=== PATIENT | female | born 1965 | race Caucasian/White ===

== ENCOUNTER 2017-03-31 02:35 | Emergency (ER) ==
[2017-03-31 02:48] VITALS: TEMP 97.6; BMI 29.6
[2017-03-31] MEDS ORDERED: CATAPRES PO STA (03:15)
[2017-03-31] MEDS ORDERED: ZOFRAN 4 MG/2 ML IM STA (03:16)
[2017-03-31] MEDS ORDERED: MORPHINE 2 MG/ML SYRINGE IM STA (03:16)
[2017-03-31] MEDS ORDERED: CATAPRES ONE (03:18)
--- NOTE | 2017-03-31 03:19 | ED.PDOC ---
General ED Provider: Dr. EMMA BURCH Chief Complaint: Hypertension Stated Complaint: Been having problem with BP, today it been more than 200, and having headache. no blurry vision, Time Seen by Physician: 03:17 Mode of Arrival: Walk-In Information Source: Patient Primary Care Provider: MARLENE HERNÁNDEZ Nursing and Triage Documentation Reviewed and Agree: Yes Cardiovascular Complaint Exam - Hypertension Complaint/Exam Symptoms Are: Still present Timing: Intermittent Aggravating: Reports: None Alleviating: Reports: None Associated Signs and Symptoms: Reports: Recent stress, Headache. Denies: Chest pain, Vision changes, Anxiety, Numbness, Tingling, Weakness, Dizziness, Short of air, Swelling Related Surgical History: Reports: None Cardiac Risk Factors: Reports: None Recent Change in Medications: No A/V Nicking: No Papilledema Present: No JVD Present: No Carotid Bruit Present: No Femoral Pulses Bounding: No Differential Diagnoses: Hypertension Quality Indicator For Non-Traumatic Chest Pain/Syncope: EKG Performed Review of Systems - Review Of Systems Constitutional: Reports: Malaise, Weakness Eyes: Reports: No symptoms Ears, Nose, Mouth, Throat: Reports: No symptoms Respiratory: Reports: No symptoms Cardiac: Reports: No symptoms GI: Reports: No symptoms : Reports: No symptoms Musculoskeletal: Reports: No symptoms Skin: Reports: No symptoms Neurological: Reports: Headache Endocrine: Reports: No symptoms Hematologic/Lymphatic: Reports: No symptoms All Other Systems: Reviewed and Negative Past Medical History - Past Medical History Previously Healthy: Yes Endocrine: Reports: None Cardiovascular: Reports: None Respiratory: Reports: None Hematological: Reports: None Gastrointestinal: Reports: None Genitourinary: Reports: None Neuro/Psych: Reports: None Musculoskeletal: Reports: None Cancer: Reports: None Last Menstrual Period: LAST WEEK - Surgical History General Surgical History: Reports: None - Family History Family History: Reports: None - Social History Smoking Status: Current every day smoker, Heavy tobacco smoker Smoking Cessation Counseling Time: > 3 min - 10 min Hx Substance Use: No Alcohol Screening: None - Immunizations Tetanus Shot up to Date: No Physical Exam - Physical Exam Appearance: Well-appearing, No pain distress, Well-nourished Eyes: SHALONDA, EOMI, Conjunctiva clear ENT: Ears normal, Nose normal, Oropharynx normal Respiratory: Airway patent, Breath sounds clear, Breath sounds equal, Respirations nonlabored Cardiovascular: RRR, Pulses normal, No rub, No murmur GI/: Soft, Nontender, No masses, Bowel sounds normal, No Organomegaly Musculoskeletal: Normal strength, ROM intact, No edema, No calf tenderness Skin: Warm, Dry, Normal color Neurological: Sensation intact, Motor intact, Reflexes intact, Cranial nerves intact, Alert, Oriented Psychiatric: Affect appropriate, Mood appropriate Critical Care Note - Critical Care Note Total Time (mins): 0 Course - Course Orders, Labs, Meds: Orders Category Date Time Status EKG-(ED ONLY) Stat CARDIO 03/31/17 03:15 Ordered CBC W/ AUTO DIFF Stat LAB 03/31/17 03:15 Ordered COMPREHENSIVE METABOLIC PANEL Stat LAB 03/31/17 03:15 Ordered CREATINE KINASE Stat LAB 03/31/17 03:15 Ordered TROPONIN I Stat LAB 03/31/17 03:15 Ordered Clonidine HCl [Catapres] MEDS 03/31/17 03:15 Stat 0.2 mg PO ONCE STA Morphine Sulfate [Morphine 2 mg/ml Syringe] MEDS 03/31/17 03:16 Stat 2 mg IM ONCE STA Ondansetron HCl/Pf [Zofran 4 mg/2 ml] MEDS 03/31/17 03:16 Stat 4 mg IM ONCE STA CT HEAD W/O CONTRAST Stat RADS 03/31/17 03:15 Ordered Medications Generic Name Dose Route Start Last Admin Trade Name Tomas PRN Reason Stop Dose Admin Clonidine 0.2 mg 03/31/17 03:15 Catapres PO 03/31/17 03:16 ONCE STA Morphine Sulfate 2 mg 03/31/17 03:16 Morphine 2 Mg/Ml Syringe IM 03/31/17 03:17 ONCE STA Ondansetron HCl 4 mg 03/31/17 03:16 Zofran 4 Mg/2 Ml IM 03/31/17 03:17 ONCE STA Vital Signs: Temp Pulse Resp BP Pulse Ox 03/31/17 02:37 97.6 F 62 18 197/83 H 96 SUSANA Risk Score SUSANA Risk Score: Risk Score Odds of by 30D 0 0.1 (0.1-0.2) 1 0.3 (0.2-0.3) 2 0.4 (0.3-0.5) 3 0.7 (0.6-0.9) 4 1.2 (1.0-1.5) 5 2.2 (1.9-2.6) 6 3.0 (2.5-3.6) 7 4.8 (3.8-6.1) Departure - Departure Time of Disposition: 06:00 Disposition: HOME SELF-CARE Discharge Problem: Hypertension Qualifiers: Hypertension type: essential hypertension Qualifier Code: (I10) Essential ( primary) hypertension Instructions: Hypertension (ED) Condition: Good Pt referred to PMD for follow-up: Yes Additional Instructions: No salt diet keep checking BP risk of stroke discussed f/u with pmd in 2-3 days Prescriptions: Lisinopril/Hydrochlorothiazide [Lisinopril-Hctz 10-12.5 mg Tab] 1 each PO DAILY #20 tablet Allergies/Adverse Reactions: Allergies No Known Drug Allergies Adverse Reaction (Verified 03/31/17 02:46) Home Medications: Ambulatory Orders Lisinopril/Hydrochlorothiazide [Lisinopril-Hctz 10-12.5 mg Tab] 1 each PO DAILY #20 tablet 03/31/17 Disposition Discussed With: Patient, Family
[2017-03-31 03:25] LABS: BASOPHILS # (AUTO) 0.1 K/uL (0-0.2); BASOPHILS % (AUTO) 0.6 % (0.0-3.0); EOSINOPHILS # (AUTO) 0.6 K/ul (0.0-0.7); EOSINOPHILS % (AUTO) 5.2 % (0.0-7.0); HEMATOCRIT 41.3 % (37.0-47.0); HEMOGLOBIN 14.1 g/dl (12.0-16.0); IMMATURE GRANULOCYTE % (AUTO) 0.3 % (0.0-5.0); LYMPHOCYTES # (AUTO) 2.5 K/uL (0.60-3.4); LYMPHOCYTES % (AUTO) 20.4 (10.0-50.0); MEAN CORPUSCULAR HEMOGLOBIN 33.7 pg (27.0-31.0); MEAN CORPUSCULAR HGB CONC 34.1 (31.8-35.4); MEAN CORPUSCULAR VOLUME 98.6 fl (81.0-99.0); MONOCYTES # (AUTO) 1.1 K/uL (0.4-2.0); MONOCYTES % (AUTO) 9.3 (0-10); NEUTROPHILS # (AUTO) 7.8 K/ul (2.0-6.9); NEUTROPHILS % (AUTO) 64.2; PLATELET COUNT 279 10^3/uL (140-440); RED BLOOD COUNT 4.19 10^6/ul (4.20-5.40)
--- NOTE | 2017-03-31 04:00 | CT ---
EXAM: CT head without contrast 07/01/2017. Sagittal and coronal reformatted images obtained HISTORY: Headache COMPARISON: None. FINDINGS: There is no evidence of intracranial hemorrhage. The midline is maintained. There is no hydrocephalus. No cerebellar tonsillar ectopia. Evaluation of the calvarium shows no fracture. The mastoid air cells are normally pneumatized. IMPRESSION: No acute intracranial abnormality.
[2017-03-31 04:01] LABS: ALANINE AMINOTRANSFERASE 21 U/L (12-78); ALBUMIN 3.8 g/dL (3.4-5.0); ALBUMIN/GLOBULIN RATIO 1.09; ALKALINE PHOSPHATASE 78 U/L (42-98); ANION GAP 11.8; ASPARTATE AMINO TRANSFERASE 17 U/L (15-37); BILIRUBIN,TOTAL 0.26 mg/dL (0.00-1.20); BLOOD UREA NITROGEN 19 mg/dL (7-18); BUN/CREATININE RATIO 24.67; CALCIUM 9.7 mg/dL (8.2-10.2); CARBON DIOXIDE 27 mmol/L (21-32); CHLORIDE 105 mmol/L (98-107); CREATINE KINASE 193 U/L; CREATINE KINASE MB 2.8 ng/ml (0.0-3.6); CREATININE 0.77 mg/dL (0.60-1.30); GLUCOSE 115 mg/dL (70-110); POTASSIUM 3.8 mmol/L (3.5-5.10); SODIUM 140 mmol/L (136-145); TOTAL PROTEIN 7.3 g/dL (6.4-8.2)
[2017-03-31 04:10] VITALS: BP 146/71
== END 2017-03-31 04:10 | disposition home or self-care (01) ==
LOC: ED 02:35
DX: I10 Essential (primary) hypertension (principal); R51 Headache; R53.1 Weakness; F17.210 Nicotine dependence, cigarettes, uncomplicated
CPT/HCPCS: 36415; 80053; 82550; 82553; 84484; 85025; 93005; 93010; 96372; 99283